=== PATIENT | female | born 1945 | race Caucasian/White ===

== ENCOUNTER 2016-06-28 07:08 | Day surgery (SDC) | payer MEDICARE, OTHER ==
[~2016-06-28 07:08] MED LIST: ALPRAZOLAM0.5 M3 PO; ASPIRIN81 M1 PO; KLONOPIN1 M1 PO; NORVASC5 M2 PO; SUPER B COMPLE150 M1 PO; TUMS200 MG PO; VITAMIN D31000 UNI3 PO
[2016-06-28 08:05] LABS: INR 0.9 INR (0.9-1.1); PROTHROMBIN TIME 10.6 SECONDS (9.0-13.6)
== END 2016-06-28 11:55 ==
LOC: CTSCAN 07:08 → SHSB 07:14
PROVIDERS: Radiology Diagnostic Radiology
PROC: 0PBB3ZX Excision of Left Clavicle, Percutaneous Approach, Diagnostic (ICD-10-PCS; principal; 2016-06-28)
DX: M89.8X8 Other specified disorders of bone, other site (principal); F41.9 Anxiety disorder, unspecified; I10 Essential (primary) hypertension; E78.5 Hyperlipidemia, unspecified; E53.8 Deficiency of other specified B group vitamins; Z79.82 Long term (current) use of aspirin; Z79.899 Other long term (current) drug therapy; Z90.49 Acquired absence of other specified parts of digestive tract; Z90.89 Acquired absence of other organs; Z90.13 Acquired absence of bilateral breasts and nipples; Z98.890 Other specified postprocedural states
CPT/HCPCS: J2250; J3010; J7030